=== PATIENT | male | born 1950 | race Caucasian/White ===

== ENCOUNTER 2016-12-11 13:38 | Emergency (ER) | payer OTHER ==
[~2016-12-11] VITALS: Ht 167.6 cm; Wt 64.1 kg
[~2016-12-11 13:38] MED LIST: ASPIR-LOW81 MG PO; ATORVASTATIN CA40 MG PO; BRILINTA90 MG PO; HYDROCODON-ACE1 EAC7 PO; LOPRESSOR50 MG PO; LOSARTAN POTASS50 MG PO; NITROSTAT0.4 MG SL; PRILOSEC40 MG PO; REGLAN10 MG PO; TAMSULOSIN HCL0.4 MG PO
[2016-12-11] MEDS ORDERED: PERCOCET 5/31 TABLET PO (17:18)
[2016-12-11 17:30] VITALS: BP 178/78
== END 2016-12-11 17:31 | disposition home or self-care (01) ==
LOC: EME 13:38 → RME 13:38
DX: M48.54XA Collapsed vertebra, not elsewhere classified, thoracic region, initial encounter for fracture (principal); C85.80 Other specified types of non-Hodgkin lymphoma, unspecified site; K21.9 Gastro-esophageal reflux disease without esophagitis; Z95.1 Presence of aortocoronary bypass graft; F17.200 Nicotine dependence, unspecified, uncomplicated
CPT/HCPCS: 72070; 99281; 99283; J3010

== ENCOUNTER 2017-01-16 15:52 | Emergency (ER) | payer OTHER ==
[~2017-01-16] VITALS: Ht 167.6 cm; Wt 61.3 kg
[~2017-01-16 15:52] MED LIST changes: +PERCOCET 5/31 TABLET PO
[2017-01-16] MEDS ORDERED: MOTRIN400 MG PO (18:59)
[2017-01-16] MEDS ORDERED: LIDODERM 5% P1 PATCH TD (19:04)
[2017-01-16 19:28] VITALS: BP 131/77
== END 2017-01-16 19:29 | disposition home or self-care (01) ==
LOC: RME 15:52 → EME 15:52 → RME 19:29
DX: D48.0 Neoplasm of uncertain behavior of bone and articular cartilage (principal); M51.36 Other intervertebral disc degeneration, lumbar region; S32.059A Unspecified fracture of fifth lumbar vertebra, initial encounter for closed fracture; W19.XXXA Unspecified fall, initial encounter; G89.29 Other chronic pain; I10 Essential (primary) hypertension; K21.9 Gastro-esophageal reflux disease without esophagitis; Z85.79 Personal history of other malignant neoplasms of lymphoid, hematopoietic and related tissues; Z95.1 Presence of aortocoronary bypass graft; Z72.0 Tobacco use
CPT/HCPCS: 72158; 99281; 99285; J2930; J3010

== ENCOUNTER 2017-01-28 12:19 | Inpatient (IN) | payer OTHER ==
[~2017-01-28] VITALS: Ht 167.6 cm; Wt 72.1 kg
[~2017-01-28 12:19] MED LIST changes: +LIDODERM 5% P1 PATCH TD; +MOTRIN400 MG PO
[2017-01-28 13:28] LABS: HEMATOCRIT 44.8 % (38.0-50.0); MCH 30.6 PG (29.0-34.0); MCHC 33.7 G/DL (30.0-36.0); MCV 90.7 FL (86-99); RBC DIS.WIDTH-SD 64.2 % (39-53); RED BLOOD COUNT 4.94 M/uL (4.00-5.50); WHITE BLOOD COUNT 10.8 K/uL (4.1-10.2)
[2017-01-28 14:20] LABS: ALKALINE PHOSPHATASE 1302 IU/L (3-129); ANION GAP 19 MEQ/L (2-14); CHLORIDE 100 MEQ/L (99-109); GFR ESTIMATE (CALCULATED) 54 mL/min/; GLUCOSE 62 mg/dL (70-99); POTASSIUM 7.3 MEQ/L (3.7-5.4); SAMPLE HEMOLYSIS CHECK 0; SAMPLE ICTERIC CHECK 1; SAMPLE LIPEMIA CHECK 0; SODIUM 134 MEQ/L (136-147); TOTAL BILIRUBIN 4.8 MG/DL (0.0-1.0); UREA NITROGEN (BUN) 48 mg/dL (9-23)
[2017-01-28 15:04] LABS: MEAN PLAT.VOLUME 11.1 uM^3 (9.0-12.4); PLAT.SUFFICIENCY ADEQUATE; PLATELET COUNT 393 K/uL (156-360)
[2017-01-28 15:22] LABS: LIPASE 399 U/L (1.0-51.0)
[2017-01-28 16:29] LABS: POINT-OF-CARE METER ID UU13113702; POINT-OF-CARE USER ID AHSDISBJH
[2017-01-28 16:47] LABS: CREATININE 1.8 mg/dL (0.6-1.3); POTASSIUM 5.9 mEq/L (3.7-5.4)
[2017-01-28] MEDS ORDERED: OMEPRAZOLE40 M1 PO (17:48)
[2017-01-28] MEDS ORDERED: LO-DOSE ASPIRIN81 M2 PO (17:50)
[2017-01-28] MEDS ORDERED: DAILY VALUE1 EACH PO (17:52)
[2017-01-28] MEDS ORDERED: IBUPROFEN400 MG PO (17:52)
[2017-01-28] MEDS ORDERED: VITAMIN B122500 MCG PO (17:53)
[2017-01-28 20:48] LABS: INTER. NORMALIZED RATIO 1.7; PROTHROMBIN TIME 17.4 (9.2-11.2); PTT 33.1 (25-32)
[2017-01-28 21:55] LABS: DIRECT BILIRUBIN 3.2 mg/dL (0.0-0.3)
[2017-01-28 23:04] VITALS: BP 125/58
[2017-01-28 23:51] LABS: CHLORIDE 112 mEq/L (99-109); SODIUM 140 mEq/L (136-147)
[2017-01-28 23:53] LABS: GLUCOSE 62 mg/dL (70-99)
[2017-01-28 23:54] LABS: ANION GAP 14 MEQ/L (2-14)
[2017-01-28 23:56] LABS: GFR ESTIMATE (CALCULATED) 54 mL/min/
[2017-01-28 23:57] LABS: UREA NITROGEN (BUN) 50 mg/dL (9-23)
[2017-01-29] VITALS (8 sets, daily range): BP systolic 108–130; BP diastolic 55–77
[2017-01-29 00:01] LABS: POTASSIUM 6.1 mEq/L (3.7-5.4)
[2017-01-29 02:56] LABS: POINT-OF-CARE METER ID UU14174216
[2017-01-29 03:45] LABS: CHLORIDE 110 mEq/L (99-109); POTASSIUM 5.8 mEq/L (3.7-5.4); SODIUM 138 mEq/L (136-147)
[2017-01-29 03:46] LABS: AMYLASE 188 IU/L (1-118)
[2017-01-29 03:47] LABS: GLUCOSE 43 mg/dL (70-99)
[2017-01-29 03:48] LABS: ANION GAP 13 MEQ/L (2-14)
[2017-01-29 03:49] LABS: TOTAL BILIRUBIN 3.7 mg/dL (0.0-1.0)
[2017-01-29 03:51] LABS: ALKALINE PHOSPHATASE 907 IU/L (3-129); GFR ESTIMATE (CALCULATED) 50 mL/min/
[2017-01-29 03:52] LABS: UREA NITROGEN (BUN) 51 mg/dL (9-23)
[2017-01-29 03:54] LABS: LIPASE 568 U/L (1.0-51.0)
[2017-01-29 04:37] LABS: EOSINOPHIL (%) 2.6 % (0-5); EOSINOPHIL COUNT 0.1 K/uL (0-0.3); IMMATURE GRANULOCYTE (%) 0.2 % (0.0-0.7); INSTRUMENT ABS NEUTROPHIL CT 3.5 K/uL; LYMPHOCYTE COUNT 0.2 K/uL (1.0-2.8); MCH 30.9 PG (29.0-34.0); MCHC 33.9 G/DL (30.0-36.0); MCV 90.9 FL (86-99); MONOCYTE COUNT 0.4 K/uL (0-0.8); NEUTROPHIL (%) 81.6 % (45-76); NEUTROPHIL COUNT 3.5 K/uL (1.8-6.4); PLATELET CLUMPS PRESENT - PLATELET COUNT APPEARS ADQ.; PLATELET COUNT UNABLE TO REPORT K/uL (156-360); RBC DIS.WIDTH-CV 20.2 % (11.8-14.6); RBC DIS.WIDTH-SD 62.4 % (39-53)
[2017-01-29 04:38] LABS: RED BLOOD COUNT 3.63 M/uL (4.00-5.50); WHITE BLOOD COUNT 4.3 K/uL (4.1-10.2)
[2017-01-29 04:59] LABS: POINT-OF-CARE METER ID UU13113698
[2017-01-29 07:04] LABS: POINT-OF-CARE METER ID UU14174216
[2017-01-30 05:25] VITALS: BP 121/72
[2017-01-30 07:09] LABS: INTER. NORMALIZED RATIO 1.5; PROTHROMBIN TIME 15.4 (9.2-11.2)
[2017-01-30 07:41] LABS: HEMATOCRIT 36.3 % (38.0-50.0); MCH 30.2 PG (29.0-34.0); MCHC 33.1 G/DL (30.0-36.0); MCV 91.4 FL (86-99); MEAN PLAT.VOLUME 10.7 uM^3 (9.0-12.4); PLATELET COUNT 218 K/uL (156-360); RBC DIS.WIDTH-CV 21.7 % (11.8-14.6); RBC DIS.WIDTH-SD 66.6 % (39-53); RED BLOOD COUNT 3.97 M/uL (4.00-5.50)
[2017-01-30 07:42] LABS: WHITE BLOOD COUNT 6.4 K/uL (4.1-10.2)
[2017-01-30 07:58] LABS: ALKALINE PHOSPHATASE 867 IU/L (3-129); ANION GAP 9 MEQ/L (2-14); CHLORIDE 109 MEQ/L (99-109); GFR ESTIMATE (CALCULATED) 38 mL/min/; GLUCOSE 56 mg/dL (70-99); POTASSIUM 5.7 MEQ/L (3.7-5.4); SAMPLE HEMOLYSIS CHECK 0; SAMPLE ICTERIC CHECK 1; SAMPLE LIPEMIA CHECK 0; SODIUM 142 MEQ/L (136-147); TOTAL BILIRUBIN 4.8 MG/DL (0.0-1.0); UREA NITROGEN (BUN) 58 mg/dL (9-23)
[2017-01-30 08:10] VITALS: BP 124/68
[2017-01-30 10:44] LABS: HBSG INDEX 0.23
[2017-01-30 10:45] LABS: HPCA INDEX 0.14
[2017-01-30 10:46] LABS: ANTI-HEPATITIS A VIRUS (IGM) Nonreactive; HAV INDEX 0.11
[2017-01-30 10:47] LABS: ANTI-HEPATITIS B CORE (IGM) Nonreactive; HBC IgM INDEX 0.07
[2017-01-30 11:53] VITALS: BP 110/06
[2017-01-30 15:29] VITALS: BP 116/67
[2017-01-30 19:10] VITALS: BP 97/67
[2017-01-30 23:47] VITALS: BP 106/54
[2017-01-31 04:00] VITALS: BP 110/63
[2017-01-31 07:56] VITALS: BP 115/62
[2017-01-31 11:30] VITALS: BP 108/59
[2017-01-31 13:40] LABS: ANION GAP 10 MEQ/L (2-14); CHLORIDE 104 MEQ/L (99-109); GFR ESTIMATE (CALCULATED) 36 mL/min/; GLUCOSE 50 mg/dL (70-99); POTASSIUM 5.4 MEQ/L (3.7-5.4); SAMPLE HEMOLYSIS CHECK 0; SAMPLE ICTERIC CHECK 1; SAMPLE LIPEMIA CHECK 0; SODIUM 138 MEQ/L (136-147); UREA NITROGEN (BUN) 65 mg/dL (9-23)
[2017-01-31 16:00] VITALS: BP 93/55
[2017-01-31 20:06] VITALS: BP 105/59
[2017-01-31 22:30] VITALS: BP 96/56
[2017-01-31 22:58] LABS: ANTI-SMOOTH MUSCLE (Actin)+ <20 U (<20)
[2017-02-01 07:52] VITALS: BP 112/72
[2017-02-01 09:15] VITALS: BP 112/72
[2017-02-01 15:57] LABS: MITOCHONDRIAL (M2) ANTIBODIES+ 51.9 U (<=20.0)
== END 2017-02-01 11:57 | DRG 180 ==
LOC: EME 12:19 → 4EAST 21:17 → EDOF 21:17 → 4EAST 22:43 → 5SOUTH 01-31 22:26
PROVIDERS: Emergency Medicine; Family Medicine; Internal Medicine; Physician Assistant
DX: C34.90 Malignant neoplasm of unspecified part of unspecified bronchus or lung (principal); E87.2 Acidosis; C78.7 Secondary malignant neoplasm of liver and intrahepatic bile duct; K72.00 Acute and subacute hepatic failure without coma; C79.51 Secondary malignant neoplasm of bone; R17 Unspecified jaundice; N17.9 Acute kidney failure, unspecified; K92.1 Melena; E87.1 Hypo-osmolality and hyponatremia; E83.52 Hypercalcemia; G89.29 Other chronic pain; R16.0 Hepatomegaly, not elsewhere classified; E87.5 Hyperkalemia; R91.8 Other nonspecific abnormal finding of lung field; F17.210 Nicotine dependence, cigarettes, uncomplicated; I25.10 Atherosclerotic heart disease of native coronary artery without angina pectoris; R19.7 Diarrhea, unspecified; I10 Essential (primary) hypertension; R06.00 Dyspnea, unspecified; E78.5 Hyperlipidemia, unspecified; K80.20 Calculus of gallbladder without cholecystitis without obstruction; R19.30 Abdominal rigidity, unspecified site; K25.9 Gastric ulcer, unspecified as acute or chronic, without hemorrhage or perforation; E16.2 Hypoglycemia, unspecified; D72.829 Elevated white blood cell count, unspecified; R74.8 Abnormal levels of other serum enzymes; R63.0 Anorexia; Z85.72 Personal history of non-Hodgkin lymphomas; Z86.73 Personal history of transient ischemic attack (TIA), and cerebral infarction without residual deficits; Z92.3 Personal history of irradiation; Z79.82 Long term (current) use of aspirin; Z95.1 Presence of aortocoronary bypass graft; Z92.21 Personal history of antineoplastic chemotherapy; Z85.71 Personal history of Hodgkin lymphoma; R79.89 Other specified abnormal findings of blood chemistry; Z51.5 Encounter for palliative care
CPT/HCPCS: 71010; 71250; 74177; 76705; 80047; 80048; 80048 91; 80053; 80074; 80076; 81003; 82150; 82248; 82948; 83516 90; 83605; 83690; 85025; 85027; 85610; 85730; 86038; 86256 90; 87040; 93005; 94640; 94799; 99281; 99285; C9113; J1815; J2270; J2405; J2543; J3370; J7030

== ENCOUNTER 2017-02-01 11:05 | Inpatient (IN) | payer OTHER ==
[~2017-02-01 11:05] MED LIST changes: +DAILY VALUE1 EACH PO; +IBUPROFEN400 MG PO; +LO-DOSE ASPIRIN81 M2 PO; +OMEPRAZOLE40 M1 PO; +VITAMIN B122500 MCG PO
[2017-02-01 23:30] VITALS: BP 00/00
== END 2017-02-02 01:15 | DRG 181 ==
LOC: 5SOUTH 11:05
DX: C78.00 Secondary malignant neoplasm of unspecified lung (principal); C78.7 Secondary malignant neoplasm of liver and intrahepatic bile duct; R09.2 Respiratory arrest; C79.70 Secondary malignant neoplasm of unspecified adrenal gland; Z85.72 Personal history of non-Hodgkin lymphomas; Z66 Do not resuscitate; Z51.5 Encounter for palliative care; G89.3 Neoplasm related pain (acute) (chronic)
CPT/HCPCS: J2060; J2270